=== PATIENT | male | born 1975 | race Caucasian/White ===

== ENCOUNTER 2018-02-02 21:54 | Emergency (ER) | payer SELFPAY ==
[2018-02-02 22:26] LABS: #Eosinphils 0.2 thou/uL (0.0-0.7); #Lymphocytes 1.2 thou/uL (1.20-3.40); #Monocytes 0.9 thou/uL (0.11-0.59); #Neutrophils 7.7 thou/uL (1.40-6.50); %Basophils 0.5 % (0.0-1.0); %Eosinophils 2.1 % (0.0-10.0); %Lymphocytes 11.6 % (21.0-51.0); %Monocytes 8.7 % (0.0-10.0); %Neutrophils 77.2 % (42.0-75.0); Hemoglobin 18.1 g/dL (14.0-18.0); Mean Corpuscular HGB CONC 33.5 g/dL (32.0-36.0); Mean Corpuscular Hemoglobin 29.2 pg (27.0-31.0); Mean Corpuscular Volume 87.3 fL (78.0-98.0); Platelet Count 216 thou/uL (130-400); RBC Distribution Width 13.1 % (11.5-14.5); Red Blood Cell (RBC) Count 6.21 mill/uL (4.70-6.10)
[2018-02-02 22:46] LABS: ALT (SGPT) 86 U/L (8-55); AST (SGOT) 39 U/L (5-34); Albumin 4.6 g/dL (3.5-5.0); Alkaline Phosphatase 179 U/L (40-150); Anion Gap 15 mmol/L (10-20); BUN (Urea Nitrogen) 16 mg/dL (8.9-20.6); Bilirubin, Total 1.5 mg/dL (0.2-1.2); Calc. Creatinine Clearance 0 mL/min (70-130); Carbon Dioxide 23 mmol/L (22-29); Chloride 99 mmol/L (98-107); Estimated GFR-MDRD 62; Globulin 3.9 g/dL (2.4-3.5); Glucose 128 mg/dL (70-105); Potassium 3.8 mmol/L (3.5-5.1); Protein, Total 8.5 g/dL (6.0-8.3); Sodium 133 mmol/L (136-145)
[2018-02-02 22:49] LABS: Troponin I Less than 0.010 ng/mL (< 0.028)
--- NOTE | 2018-02-08 23:07 | EKG ---
Test Reason : Blood Pressure : / mmHG Vent. Rate : 088 BPM Atrial Rate : 088 BPM P-R Int : 154 ms QRS Dur : 088 ms QT Int : 372 ms P-R-T Axes : 022 003 006 degrees QTc Int : 450 ms Normal sinus rhythm Possible Inferior infarct , age undetermined Abnormal ECG Confirmed by MANNY RIZVI ([id number]), editor magazine LENA DELANEY ([id number]) on 02/08/2018 11:07:04 PM Referred By: Confirmed By:MANNY RIZVI
== END 2018-02-03 00:11 | disposition home or self-care (01) ==
LOC: ERS 21:54
DX: R55 Syncope and collapse (principal); I10 Essential (primary) hypertension; F32.9 Major depressive disorder, single episode, unspecified; Z79.899 Other long term (current) drug therapy
CPT/HCPCS: 36415; 80053; 82553; 84484; 85025; 93005; 96360

== ENCOUNTER 2018-11-25 11:42 | Inpatient (IN) | payer SELFPAY ==
[~2018-11-25 11:42] MED LIST: ISOVUE-370 76%-LOCM 1 ML ONE
[2018-11-25 12:11] LABS: #Basophils 0.1 thou/uL (0.0-0.2); #Eosinphils 0.2 thou/uL (0.0-0.7); #Lymphocytes 1.6 thou/uL (1.20-3.40); #Monocytes 1.2 thou/uL (0.11-0.59); #Neutrophils 8.7 thou/uL (1.40-6.50); %Basophils 0.5 % (0.0-1.0); %Eosinophils 1.6 % (0.0-10.0); %Lymphocytes 13.3 % (21.0-51.0); %Monocytes 10.6 % (0.0-10.0); Hemoglobin 17.7 g/dL (14.0-18.0); Mean Corpuscular HGB CONC 33.4 g/dL (32.0-36.0); Mean Corpuscular Hemoglobin 29.8 pg (27.0-31.0); Mean Corpuscular Volume 89.4 fL (78.0-98.0); Mean Platelet Volume 8.9 fL (7.4-10.4); Platelet Count 202 thou/uL (130-400); RBC Distribution Width 12.9 % (11.5-14.5); Red Blood Cell (RBC) Count 5.92 mill/uL (4.70-6.10); White Blood Cell (WBC) Count 11.7 thou/uL (4.8-10.8)
--- NOTE | 2018-11-25 12:15 | RAD ---
XR Chest 1 View Portable History: Chest pain Comparison: None. Findings: Lungs are mildly hypoinflated. Heart size upper limits of normal. No pneumothorax. No effus ion. No acute osseous abnormality. Impression: Lung hypoinflation otherwise no acute intrathoracic abnormality.
[2018-11-25 12:35] LABS: ALT (SGPT) 49 U/L (8-55); AST (SGOT) 26 U/L (5-34); Albumin 4.7 g/dL (3.5-5.0); Alkaline Phosphatase 125 U/L (40-150); Anion Gap 15 mmol/L (10-20); BUN (Urea Nitrogen) 8 mg/dL (8.9-20.6); Bilirubin, Total 1.1 mg/dL (0.2-1.2); CK (CPK) 130 U/L (30-200); Calc. Creatinine Clearance 0 mL/min (70-130); Calcium 10.3 mg/dL (7.8-10.44); Carbon Dioxide 21 mmol/L (22-29); Chloride 105 mmol/L (98-107); Estimated GFR-MDRD 76; Globulin 3.6 g/dL (2.4-3.5); Glucose 94 mg/dL (70-105); Lipase 18 U/L (8-78); Potassium 4.5 mmol/L (3.5-5.1); Protein, Total 8.3 g/dL (6.0-8.3); Sodium 136 mmol/L (136-145)
--- NOTE | 2018-11-25 12:56 | CT ---
CTA Angio Chest W WO Con 11/25/2018 12:01 PM Indication: Chest pain that started last night prior to arrival with bilateral lower and upper chimn ey weakness and chest tightness Technique: Multiple CTA images were obtained of the thorax with IV contrast. 3D reformatted images were constructed from the raw data. Comparison: None Findings: Pulmonary arteries: No central or segmental pulmonary embolus is evident. Heart and Great Vessels: Heart and great vessels are normal appearing. There is a triangular-shaped soft tissue density mass seen within the superior and posterior aspect of the left mediastinum, adjacent to the left subclavian artery and descending thoracic aorta, measuring 4.6 x 3.4 cm. On this postcontrast evaluation this lesion has internal density of 34 Hounsfield units. Lungs:The lungs are clear. Pleural space: Clear. Upper Abdomen: No acute abnormality. Osseous Structures: No acute osseous abnormality. Impression: No central or segmental pulmonary embolus. Incidental posterior mediastinal mass. This is incompletely characterized on this single phase exam. A follow-up CT the thorax with and without IV contrast is recommended to evaluate this mass lesion. Differential considerations include foregut duplication cyst, lymphangioma, atypical pericardial cyst , thymoma or enlarged lymph node.
[2018-11-25] MEDS ORDERED: Aspirin Chewable 81 MG TAB ONE (13:26)
[2018-11-25 15:59] LABS: Troponin I Less than 0.010 ng/mL (< 0.028)
[2018-11-25 16:45] VITALS: BMI 41.7
[2018-11-25 18:27] LABS: Troponin I Less than 0.010 ng/mL (< 0.028)
[2018-11-25] MEDS ORDERED: Morphine 2 MG/ML SYRINGE SLOW IVP PRN (18:35)
[2018-11-25] MEDS ORDERED: HYDROcodone/Acetaminophen 5/325 mg Tablet PO PRN (18:35)
[2018-11-25] MEDS ORDERED: HYDROcodone/Acetaminophen 10/325 mg Tablet PO PRN (18:36)
[2018-11-25] MEDS ORDERED: Nitroglycerin 0.4 MG TAB (25 Tab Bottle) SL PRN (18:36)
[2018-11-25] MEDS: Lisinopril/Hydrochlorothiazide 20 mg/12.5 mg Tablet PO SCH (20:04)
--- NOTE | 2018-11-26 01:17 | HP ---
PRIMARY CARE PHYSICIAN: Mindi Munson MD CHIEF COMPLAINT/REASON FOR ADMISSION: "My chest hurts and I can't breathe." HISTORY OF PRESENT ILLNESS: Mr. Mcmanus is a 43-year-old gentleman with a medical history of essential hypertension, on lisinopril 20/12.5 mg p.o. twice daily. History begins January 2018, at which time he recalls an ER visit following a syncopal spell, felt to be vasovagal in nature, occurring at home. He was not admitted at that time. Following that episode, he began having gradually worsening shortness of breath with exertion. This has progressed over the last 6 months. He states that he encounters profound fatigue with minimal exertion, for example, if walking the length of the hospital room 5 times, he would have to go to bed and rest for the remainder of the day. The limitations in his activity level have become more pronounced over the last few weeks. For example, he would be able to pick one or two items off a grocery shelf before needing to sit down and rest. When he feels these symptoms, he endorses shortness of breath, pain overlying his chest, and diaphoresis. Following activity, he endorses general muscle soreness diffusely. He has had no prior stress test, no prior echocardiogram. He is worried he has congestive heart failure, because he has read about the symptoms, and he described how he feels. When asked about weight loss, he states the last one year his weight has been relatively stable. Around 3 years ago, he did gain weight, attributes this to a more sedentary lifestyle, but this has been relatively unchanged the last year. He has no lower extremity edema. He endorses a feeling of tightness overlying his abdomen, and endorses early satiety, eating small frequent meals at home. He denies night sweats. He does endorse orthopnea as well as occasional palpitations. Additionally, over the last few weeks, he endorses double vision, particularly when fatigued, generally at distances between 2 to 4 feet. He decided to proceed to the emergency department today due to increased intensity of symptoms, developing chest pain and diaphoresis when he awoke, with accompanying numbness in his hands/forearms, and feet. This numbness has since resolved. In the emergency department, EKG notable for sinus tachycardia with a heart rate of 121 beats per minute. Chest x-ray performed, unremarkable. Followup CT angiography performed of the chest, with finding notable for posterior mediastinal mass. Followup CT thorax with and without IV contrast was recommended for further information, with differential including cyst/lymphangioma/pericardial cyst/thymoma/enlarged lymph node. PAST MEDICAL HISTORY: Essential hypertension. He takes occasional potassium supplements, as these seem to improve his symptoms. PAST SURGICAL HISTORY: Reviewed, negative. FAMILY HISTORY: Father of cerebrovascular accident around age 80. Mother is living with a history of hypertension. SOCIAL HISTORY: The patient has a background as an [employer] worker, but is currently not working. He lives alone. He does not smoke, smoked for 3 years in his early 20s. No alcohol use for the last 16 years, prior to that would drink alcohol occasionally. No illicit drug use. HOME MEDICATIONS: Lisinopril 20/12.5 one p.o. b.i.d. ALLERGIES: NONE. REVIEW OF SYSTEMS: Review of systems is as above in history of present illness. Also, of note, the patient notes early satiety, preserved appetite, no night sweats, weight stable for the last year or so as above. PHYSICAL EXAMINATION: VITAL SIGNS: Blood pressure 138/100, temperature 98.3, pulse 91, respiratory rate 20, and saturating 96% on room air. GENERAL: This is a well-developed, well-nourished gentleman, lying in bed, able to speak in complete sentences. HEENT: Eyes are without conjunctival injection or scleral icterus. No clear evidence of ptosis on eye exam. Extraocular movements are intact. Oropharynx is clear without erythema or exudate. NECK: Supple. Full range of motion. HEART: Tachycardic, mild, no distinct murmur. LUNGS: Clear to auscultation bilaterally. ABDOMEN: Obese, soft, nontender, and nondistended. EXTREMITIES: No clubbing/cyanosis/edema. NEUROLOGIC: Cranial nerve testing unremarkable. Strength testing proximally and distally is intact, 5/5 proximal and distal. He does endorse double vision during visual testing, which appeared to be intermittent and fleeting in nature. SKIN: No new skin rash/skin change. He has a history of eczema on his hands bilaterally, which is unchanged from baseline. No cervical radiculopathy. LAB/DATA REVIEW: Case discussed by phone with Dr. Coto in the emergency department. EKG personally reviewed, sinus rhythm, 121 beats per minute, no acute ST/T-wave changes. Chemistry panel reviewed, essentially unremarkable, with cardiac biomarkers negative thus far. TSH mildly elevated at 6.7. White blood cell count 11.7, hemoglobin 17, hematocrit 52. D-dimer 0.31. Potassium 4.5. Imaging reviewed. Personally reviewed chest x-ray as well as CT angiography of the chest/thorax. Chest x-ray with lung hypoinflation, no evidence of edema or infiltrate. CT of the chest showing incidental posterior mediastinal mass, incompletely characterized, differential provided by Radiology includes mention of foregut duplication cyst, lymphangioma, atypical pericardial cyst, thymoma, enlarged lymph node. IMPRESSION: 1. Chest pain/shortness of breath, worsened with exertion, progressive. 2. Essential hypertension. 3. Incidental posterior mediastinal mass, not presently well defined. PLAN/RECOMMENDATIONS: 1. Cardiology - complete cycle of cardiac biomarkers. Check 2D echocardiogram. Check BNP. Exam not compatible with congestive heart failure, though this remains the patient's primary concern at this time. Pending other testing, consideration of stress test. The patient endorses paroxysms of hypertension and diaphoresis, and plasma-free metanephrine. Continue home lisinopril 20/12.5 p.o. b.i.d. 2. Endocrine - diplopia endorsed, profound fatigue with exertion of skeletal muscles, order acetylcholinesterase receptor antibody. Baseline cortisol level with morning lab, follow up T3, and TSH slightly elevated. 3. Pulmonary - request pulmonary evaluation. We will order CT chest with and without IV contrast for improved delineation of posterior mediastinal mass. 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 Given age/comorbidities, as well as the complexities of presentation and the patient's relative lack of access to medical care, admit to inpatient status at this time with further adjustments based on hospital course. Job ID: [id number]
[2018-11-26] MEDS ORDERED: Enoxaparin Sodium 40 MG/0.4 ML SYRINGE SC SCH (09:00)
--- NOTE | 2018-11-26 10:46 | CON ---
DATE OF CONSULTATION: 11/26/2018 CONSULTING PHYSICIAN: Ellen Goldberg MD REASON FOR CONSULTATION: Posterior mediastinal mass. HISTORY OF PRESENT ILLNESS: The patient is a 43-year-old male, who has had four months of progressive weakness. He says he can only work for a few minutes before having to sit down because of fatigue. He says occasionally he has some foot numbness and some perioral numbness. He says he has had some blurred vision. He says all this is due to "low potassium." He says potassium chloride will usually fix him. It is not clear to me why all this resulted him coming to the emergency room yesterday. In any event, he underwent a CT pulmonary angiography, which demonstrated a cystic structure in the posterior aspect of the left upper mediastinum measuring 4.6 x 3.4 cm with radiology differential diagnosis foregut duplication cyst, lymphangioma, atypical pericardial cyst, thymoma, or enlarged lymph node. He is scheduled for a followup CT of the chest with and without contrast by Radiology further today for a better look. The patient lives alone. He apparently has difficulty sleeping at night. He has never had a workup for sleep apnea in the past. PAST MEDICAL HISTORY: 1. Hypertension. 2. Obesity. PAST SURGICAL HISTORY: Negative. FAMILY MEDICAL HISTORY: Remarkable for stroke and hypertension. SOCIAL HISTORY: He has worked in [employer] in the past, but is currently unemployed. Does not smoke. Has not had a drink in 16 years. Does not use illicit drugs. MEDICATIONS: Lisinopril/hydrochlorothiazide 1 daily. ALLERGIES: NONE. REVIEW OF SYSTEMS: Remarkable for the weakness and the dyspnea on exertion. Otherwise negative. PHYSICAL EXAMINATION: VITAL SIGNS: Temperature 98.8, pulse 85, respirations 18, O2 saturation 95%, and blood pressure 134/92. He is a heavyset male, standing 5 foot 11 inches and weighing 299 pounds. HEENT: Unremarkable except for class 4 Mallampati airway. NECK: No adenopathy. No JVD. Does have increased girth. LUNGS: Clear without wheezing rhonchi. CARDIAC: S1 and S2. Regular without murmur. ABDOMEN: Obese, soft, and nontender. EXTREMITIES: No clubbing, cyanosis, or edema. NEUROLOGIC: Muscle strength 5/5 throughout. He has sensation fully intact throughout. Cranial nerves 2 through 12 are intact throughout. LABORATORY DATA: White blood cell count 11.7, hematocrit 52.9, and platelet count 202. D-dimer was 0.3. Sodium 136, potassium 4.5, chloride 105, CO2 of 21, BUN 8, creatinine 1.1, glucose 94, globulin was 3.6, and TSH 6.7. I reviewed the CT of the chest personally and I agree with the radiology findings. Echo showed EF of 55% to 60% with moderate LV hypertrophy. ASSESSMENT: Posterior mediastinal abnormality, likely reflective of some type of cyst. RECOMMENDATION: 1. He is to have another CT scan today for further assessment of this. My feeling is this is probably all incidental finding. I doubt that he needs any surgical biopsy or intervention. He is currently being worked up for myasthenia gravis. If that workup ended up being positive, then perhaps further investigation for thymoma would be needed. I will get some PFTs to make sure we are not dealing with any type of obstructive lung disease. 2. Would recommend outpatient sleep testing to workup sleep apnea as he appears to be at high risk. Job ID: [id number]
[2018-11-26] MEDS: Lisinopril/Hydrochlorothiazide 20 mg/12.5 mg Tablet PO SCH ×2 (12:38→20:14)
--- NOTE | 2018-11-26 12:39 | CON ---
DATE OF CONSULTATION: 11/26/2018 REASON FOR CONSULTATION: Chest pain and pressure. HISTORY OF PRESENT ILLNESS: Mr. Mcmanus is a 43-year-old gentleman. He reports that he has had progressive shortness of breath and chest pressure and pain. The patient states that he has a long history of hypertension. He has been treated off and on. He came to the hospital complaining of shortness of breath with low-level activity and chest pressure, just doing very minimal activities, has been gradually worsening over the last 3 months. The patient also reports diffuse muscle pain. The patient also had a syncopal episode in the past, thought to be related to orthostatic hypotension. PAST HISTORY: Essential hypertension. PAST SURGICAL HISTORY: Negative. FAMILY HISTORY: Father of cerebrovascular accident at age 80. Mother living with history of hypertension. 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 Does not smoke. Smoked in his early 30s, but not recently. MEDICATIONS: At home lisinopril/hydrochlorothiazide 20/12.5 twice a day. REVIEW OF SYSTEMS: CONSTITUTIONAL: No significant weight gain or loss. HEENT: Vision, no changes. Hearing, no changes. PULMONARY: No cough or wheezing. GASTROINTESTINAL: No nausea, vomiting, or diarrhea. SKIN: No rashes. NEUROLOGIC: No unilateral weakness or numbness. PHYSICAL EXAMINATION: GENERAL: This is a pleasant gentleman. He is very overweight. He is 5 feet and 11 inches tall. Weight, 299 pounds, BMI is 41.7. HEENT: Eyes, sclerae are nonicteric. Mouth, mucous membranes moist. NECK: Supple. No lymphadenopathy. LUNGS: Clear. No wheezing, rales, or rhonchi. CARDIAC: Normal S1. Normal S2. There is no murmur, rub, or gallop. ABDOMEN: Obese, nontender. No hepatosplenomegaly. EXTREMITIES: No clubbing or cyanosis. There is no edema. Good peripheral pulses. SKIN: Warm and dry. LABORATORY DATA: Cardiac enzymes were negative. TSH was 6.7. BNP was normal. DIAGNOSTIC DATA: Echocardiogram shows normal left ventricular systolic function, but he has moderate concentric left ventricular hypertrophy. EKG came in with sinus tachycardia, also had 1 episode of nonsustained SVT, 11 beats at rate of 150. ASSESSMENT: 1. Longstanding hypertension. 2. Chest pressure and shortness of breath with low-level exertion. The patient is persuaded that he has underlying heart disease and he thinks he has heart failure. 3. Morbid obesity. 4. Hypertension. 5. Left ventricular hypertrophy related to hypertension. PLAN: Discussed the options, cardiac catheterization would be the most definitive test. The patient could undergo stress testing, but it may not be definitive and he has symptoms that occur with low-level activities. Cardiac catheterization will likely be the most definitive test. Discussed the options, he prefers a more definitive test of cardiac catheterization. He discussed risk of stroke, heart attack, iodine allergy, loss of blood supply to leg or kidney, stent thrombosis, stent restenosis, and wished to proceed. This will be arranged for tomorrow. Job ID: [id number]
--- NOTE | 2018-11-26 15:40 | CT ---
Exam: Chest CT with contrast Chest CT without contrast Correlation: CT angiogram chest 11/25/2018 HISTORY: Posterior mediastinal mass. Incomplete characterization. FINDINGS: In the posterior left mediastinum, there is a hypodensity with a noncontrast attenuation coefficient of 7 Hounsfield units. On the postcontrast images, this lesion has an attenuation coefficient of 4.5 Hounsfield units. A cystic lesion is favored. Normal heart size. Unremarkable aorta. Unremarkable upper solid abdominal viscera. There are few scattered nonspecific mesenteric lymph node s. Trachea and central bronchi are patent. Dependent atelectatic changes. Pleural spaces: No pleural effusion Right lung: No suspicious masses or consolidation Left lung: No suspicious masses or consolidation Pneumothorax: None Osseous structures: No osteoblastic or osteolytic lesions. IMPRESSION: Cystic lesion involving the posterior left mediastinum, adjacent to the aortic knob. 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 There is no connection with the neural axis. Transcribed Date/Time: 11/26/2018 3:01 PM
[2018-11-26] MEDS ORDERED: Sodium Chloride 0.9% 1,000 ML IV SCH (18:00)
[2018-11-26] MEDS ORDERED: Ibuprofen 600 MG TAB PO PRN (18:00)
--- NOTE | 2018-11-26 18:04 | PDOC.HOSPP ---
- Subjective Encounter Date: 11/26/18 Encounter Time: 17:50 Subjective: Late entry note, patient seen 7am and again this evening to followup tests/ rn lactation consultant recommendations. Reviewed results and plans. Patient endorses mild headache, requests ibuprofen. States BP here controlled but at home 150-160 on current regimen, wonders if hospital BP cuff is correct. No nausea or vomiting. Endorses SOB with exertion. - Objective Vital Signs & Weight: Vital Signs (12 hours) Temp Pulse Resp BP Pulse Ox 11/26/18 16:34 97.8 F 89 18 124/84 94 L 11/26/18 12:38 85 11/26/18 12:05 98.2 F 68 18 132/71 96 11/26/18 07:40 95 11/26/18 07:30 98.8 F 85 18 134/92 H 95 Weight Weight 299 lb Result Diagrams: 11/25/18 11:55 11/25/18 11:55 ROS - Medication Medications: Active Medications Generic Name Dose Route Start Last Admin Trade Name Freq PRN Reason Stop Dose Admin Lisinopril/HCTZ 1 tab 11/25/18 21:00 11/26/18 12:38 Prinizide 20-12.5 PO 1 tab BID LISA Administration - Exam NAD Eye: anicteric sclera ENT: moist mucosa Neck: supple, no lymphadenopathy Heart: RRR, no murmur Respiratory: CTAB Gastrointestinal: soft, non-tender Extremities: no edema Neurological: no new deficit Musculoskeletal: normal tone, normal strength Psychiatric: A&O x 3 Hosp A/P (1) Chest pain Code(s): R07.9 - CHEST PAIN, UNSPECIFIED Status: Acute (2) VAIL (dyspnea on exertion) Code(s): R06.09 - OTHER FORMS OF DYSPNEA Status: Acute (3) Mediastinal mass Status: Acute (4) Hypertension Code(s): I10 - ESSENTIAL (PRIMARY) HYPERTENSION Status: Acute - Plan 1. Cards - Discussed with Dr. Contreras; for definitive cardiac cath in AM. Cont curren BP agents. 2. Pulm - CT reviewed/noted - mediastinal mass --> cyst? Appreciate pulmonary input. Consideration of outpt sleep study 3. Endo - acetylcholine AB test and plasma free metanephrine testing ordered, pending.
[2018-11-27] MEDS ORDERED: Sodium Chloride 0.9% 1,000 ML IV SCH (04:00)
[2018-11-27] MEDS: Lisinopril/Hydrochlorothiazide 20 mg/12.5 mg Tablet PO SCH (06:03)
[2018-11-27 06:14] LABS: Cardiac Risk 7.8 (Less than 4.5)
[2018-11-27 06:38] LABS: Troponin I Less than 0.010 ng/mL (< 0.028)
[2018-11-27] MEDS ORDERED: Lidocaine 1% (PF) 30 ML VIAL ONE (07:59)
[2018-11-27] MEDS ORDERED: Potassium Chloride 8 MEQ TAB PO SCH (08:00)
[2018-11-27] MEDS ORDERED: Fentanyl 100 MCG/2 ML VIAL ONE (08:08)
[2018-11-27] MEDS ORDERED: Midazolam HCl 2 mg/2 ml Vial ONE (08:09)
[2018-11-27] MEDS ORDERED: Nitroglycerin 100MG/250ML BOT 250 ML ONE (08:48)
[2018-11-27] MEDS ORDERED: Atropine Sulfate 1 mg/10 ml Syringe ONE (08:52)
[2018-11-27] MEDS ORDERED: Nitroglycerin 0.4 MG TAB (25 Tab Bottle) SL PRN (09:19)
[2018-11-27] MEDS ORDERED: Acetaminophen/Codeine 30-300mg Tablet PO PRN ×2 (09:19)
[2018-11-27] MEDS ORDERED: Sodium Chloride 0.9% 200 ML IV PRN (09:19)
--- NOTE | 2018-11-27 10:57 | PRG ---
DATE OF SERVICE: 11/27/2018 SUBJECTIVE: The patient is just back from the cardiac catheterization lab. He had a normal cardiac cath with a normal ejection fraction. I have reviewed his PFTs from yesterday. He has a normal FEV1, FVC, total lung capacity, and DLCO. His minute ventilatory volume is slightly low, but nothing that would particularly concern me. PHYSICAL EXAMINATION: VITAL SIGNS: He is afebrile. Vital signs are stable. HEENT: Unremarkable. NECK: No adenopathy or JVD. LUNGS: Clear. CARDIAC: S1 and S2, regular. ABDOMEN: Soft. EXTREMITIES: No edema. ASSESSMENT: This patient has shortness of breath, out of character for his pulmonary function and cardiac workup. Some of this could be due to obesity. However, in his case, I think neurologic cause needs to be worked up. RECOMMENDATIONS: 1. I would have someone follow up his myasthenia tests as an outpatient in the office. I would also recommend Neurologic consultation for further workup such as myasthenia or ALS. 2. He needs a sleep study as an outpatient. However, I do not think sleep apnea will be the cause of his dyspnea. 3. Weight loss is advised. Job ID: [id number]
[2018-11-27] MEDS ORDERED: Iopamidol 370 76% 100 ML VIAL ONE (13:33)
[2018-11-27 15:47] VITALS: BP 140/85; TEMP 98.2
--- NOTE | 2018-11-28 15:31 | DIS ---
DATE OF ADMISSION: 11/25/2018 DATE OF DISCHARGE: 11/27/2018 PRIMARY CARE PHYSICIAN: Mindi Munson MD. CHIEF COMPLAINT/REASON FOR ADMISSION: Chest pain and shortness of breath with exertion. PRINCIPAL DIAGNOSIS ON ADMISSION: Chest pain/shortness of breath, on exertion. DISCHARGE DIAGNOSES: 1. Chest pain/shortness of breath on exertion, deconditioning secondary to obesity versus underlying neurologic cause, presently under evaluation. 2. Essential hypertension. 3. Incidental posterior mediastinal mass, likely cystic in nature. CONSULTS DURING HOSPITAL STAY: 1. Pulmonary/Critical Care Medicine, Madan Moody MD. 2. Cardiology, Francesco Contreras MD. STUDIES/PROCEDURES: 1. Pulmonary function tests showing normal FEV1, FVC, total lung capacity, and DLCO. Recommendation for outpatient sleep study, discussed by Pulmonary with the patient. 2. 2D echocardiogram: Ejection fraction of 55% to 60%. Left ventricular size noted to be normal. Mild concentric left ventricular hypertrophy. No evidence of valvular pathology. 3. 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 4. Cardiac catheterization, 11/28/2011: Negative. No evidence of coronary artery disease. Ejection fraction normal at 60%. 5. CT angiogram chest with and without contrast showing no central or segmental pulmonary embolus. Incidental posterior mediastinal mass noted, with recommendation for additional imaging, performed and listed above. HOSPITAL COURSE: Mr. Mcmanus is a 43-year-old gentleman, presenting on 11/25/2018 via the emergency department with a complaint of worsening exertional chest pain/dyspnea. Please see my detailed history and physical from the time of admission. Noted interval worsening over the last 6 months, with profound fatigue with minimal exertion, difficulty following previous activity, and general muscle soreness diffusely. His main concern at the time of admission was interval development of congestive heart failure. He endorses feeling a tightness over the abdomen, early satiety, occasional diplopia. Pulmonary evaluation undertaken in regard to the incidentally noted mediastinal mass. Followup imaging reveals this appears to be cystic and benign in nature. Pulmonary function tests also undertaken, as above, essentially unremarkable. Recommendation is for outpatient sleep study, as some reported features are compatible with obstructive sleep apnea. From a Cardiology standpoint, ejection fraction noted to be normal. On echocardiogram, with followup definitive cardiac catheterization showing normal coronary arteries. Cardiac biomarkers remain negative. He does have essential hypertension at baseline, this was monitored, and well-controlled during hospital stay. Previously had reported paroxysms of elevated blood pressure as well as diaphoresis, plasma-free metanephrine was sent, results pending at the time of this dictation. Neurologically, the patient reported diplopia, as well as profound fatigability with minimal exertion, concerning for skeletal muscle process. Testing was sent including acetylcholine receptor antibodies for the consideration of myasthenia gravis. Additional workup performed included cortisol level which is normal at 11; TSH slightly high at 6.7, but normal free T4 at 0.88. Total cholesterol noted to be 227, LDL 176, HDL 29. Dietary intervention recommended at this time. I spoke with the patient this afternoon following his cardiac catheterization. PHYSICAL EXAMINATION: SKIN: Groin site is soft, no evidence of hematoma. LUNGS: Clear to auscultation bilaterally. HEART: Regular rate and rhythm. ABDOMEN: Soft and nontender. I discussed followup options with him. He is agreeable to follow up with Neurology as an outpatient. Also provided point of contact for followup on the myasthenia workup initiated during in-hospital stay. Additionally, we discussed some slight medication changes which are reflected below. He appears stable for transition in the outpatient setting at this time, though notably his symptoms are unchanged from admission. DISCHARGE DISPOSITION: Home. MEDICATIONS: 1. Lasix 40 mg p.o. once daily. 2. Lisinopril 20 mg p.o. twice daily. 3. Potassium chloride 20 mEq p.o. once daily. FOLLOWUP: 1. Follow up with primary care physician, Mindi Munson MD. 2. Follow up Neurology, Karri Barnett MD. ACTIVITY: As tolerated. DIET: Regular. Time spent on care/discharge, 45 minutes. Job ID: [id number]
--- NOTE | 2018-11-29 13:39 | EKG ---
Test Reason : Blood Pressure : / mmHG Vent. Rate : 121 BPM Atrial Rate : 121 BPM P-R Int : 150 ms QRS Dur : 084 ms QT Int : 312 ms P-R-T Axes : 022 022 026 degrees QTc Int : 443 ms Sinus tachycardia Otherwise normal ECG Confirmed by HECTOR DE LA O, RYLEY ([id number]), business editor BALJIT HURST ([id number]) on 11/29/2018 1:39:07 PM Referred By: Confirmed By:RYLEY YOUNG MD
[2018-12-02 00:07] LABS: Metanephrine,Plasma <10 pg/mL (0-62); Normetanephrine,Pl 64 pg/mL (0-145)
--- NOTE | 2018-12-02 09:38 | PFT ---
PATIENT HISTORY: HEIGHT: 70 IN WEIGHT: 299 SMOKER: NO HOW LON YRS PACKS PER DAY: 1 PRODUCTIVE COUGH: no LUNG DISEASE: PHYSICIAN INTERPRETATION FINAL REPORT: Patient had good effort and good cooperation. PFT data: FVC 5.22 (97%), FEV1 4.21 (99%), FEV1/FVC 0.81 RV 1.73 (82%), TLC 6.44 (86%), FRC 2.48 (70%), DIFFUSION 31.28 (88%) The FEV1 and FVC fall with in the normal limits. The ratio normal suggesting there is no evidence of obstructive air flow limitation. The Residual Volume and Total Lung Capacity fall within the lower limits of normal. The FRC is mildly reduced. Diffusion Capacity is normal and actually improves when considering alveolar ventilation. IMPRESSION: Overall, these pulmonary function studies are normal. The reduced FRC is a function is his body habitus. 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
== END 2018-11-27 18:20 | disposition home or self-care (01) | DRG 56 ==
LOC: ERS 11:42 → OBSVTOIN 16:36 → 2SW 16:36 → 2NO 23:20
PROVIDERS: ADMIT Internal Medicine; ATTEND Internal Medicine
PROC: 4A023N7 Measurement of Cardiac Sampling and Pressure, Left Heart, Percutaneous Approach (ICD-10-PCS; principal; 2018-11-27)
PROC: B2111ZZ Fluoroscopy of Multiple Coronary Arteries using Low Osmolar Contrast (ICD-10-PCS; 2018-11-27)
PROC: B2151ZZ Fluoroscopy of Left Heart using Low Osmolar Contrast (ICD-10-PCS; 2018-11-27)
DX: G70.00 Myasthenia gravis without (acute) exacerbation (principal); J98.59 Other diseases of mediastinum, not elsewhere classified; Z68.41 Body mass index [BMI] 40.0-44.9, adult; E66.9 Obesity, unspecified; G47.33 Obstructive sleep apnea (adult) (pediatric); I11.0 Hypertensive heart disease with heart failure; I50.9 Heart failure, unspecified; Z87.891 Personal history of nicotine dependence
CPT/HCPCS: 36415; 71045; 71270; 71275; 76942; 80053; 80061; 82533; 82550; 83519; 83690; 83835; 83880; 84439; 84443; 84484; 85025; 85379; 93005; 93306; 93458; 94060; 94727; 94729; 94760; 96360; 96361; 99152; 99153; C1769; J0461; J1644; J1650; J2001; J2250; J3010; Q9966; Q9967

== ENCOUNTER 2021-08-18 08:44 | Emergency (ER) | payer SELFPAY ==
[2021-08-18] MEDS ORDERED: Iopamidol-370 76% 500 ML 1 ML ONE (09:50)
[2021-08-18 10:50] LABS: #Basophils 0.1 thou/uL (0.0-0.2); #Eosinphils 0.1 thou/uL (0.0-0.7); #Monocytes 0.7 thou/uL (0.11-0.59); #Neutrophils 7.5 thou/uL (1.40-6.50); %Basophils 0.8 % (0.0-1.0); %Eosinophils 1.5 % (0.0-10.0); %Lymphocytes 10.4 % (21.0-51.0); %Monocytes 7.5 % (0.0-10.0); %Neutrophils 79.9 % (42.0-75.0); Hemoglobin 16.3 g/dL (14.0-18.0); Mean Corpuscular HGB CONC 33.5 g/dL (32.0-36.0); Mean Corpuscular Hemoglobin 31.1 pg (27.0-31.0); Mean Corpuscular Volume 92.8 fL (78.0-98.0); Mean Platelet Volume 8.1 fL (7.4-10.4); Platelet Count 175 thou/uL (130-400); RBC Distribution Width 12.9 % (11.5-14.5); Red Blood Cell (RBC) Count 5.23 mill/uL (4.70-6.10); White Blood Cell (WBC) Count 9.4 thou/uL (4.8-10.8)
[2021-08-18 10:53] LABS: ALT (SGPT) 34 U/L (8-55); AST (SGOT) 22 U/L (5-34); Albumin 4.2 g/dL (3.5-5.0); Alkaline Phosphatase 117 U/L (40-110); Anion Gap 14 mmol/L (10-20); BUN (Urea Nitrogen) 6 mg/dL (8.9-20.6); Bilirubin, Total 1.3 mg/dL (0.2-1.2); Calc. Creatinine Clearance 0 mL/min (70-130); Calcium 9.3 mg/dL (7.8-10.44); Carbon Dioxide 25 mmol/L (22-29); Chloride 101 mmol/L (98-107); Globulin 3.1 g/dL (2.4-3.5); Glucose 95 mg/dL (70-105); Potassium 3.8 mmol/L (3.5-5.1); Protein, Total 7.3 g/dL (6.0-8.3); Sodium 136 mmol/L (136-145)
== END 2021-08-18 13:50 | disposition home or self-care (01) ==
LOC: ERS 08:44
DX: R14.0 Abdominal distension (gaseous) (principal); E03.9 Hypothyroidism, unspecified; I10 Essential (primary) hypertension; F17.220 Nicotine dependence, chewing tobacco, uncomplicated; Z79.899 Other long term (current) drug therapy
CPT/HCPCS: 36415; 74177; 80053; 85025; 96360; 96361; Q9967